=== PATIENT | male | born 1955 | race Caucasian/White ===

== ENCOUNTER → 2018-02-05 | Outpatient (CLI) | payer BC | END | disposition home or self-care (01) | LOC: HKI 12:54 | DX: M25.561 Pain in right knee (principal); F17.210 Nicotine dependence, cigarettes, uncomplicated | CPT/HCPCS: 73564; 73564-RT ==

== ENCOUNTER 2018-05-29 13:00 | Emergency (ER) | payer BC ==
[2018-05-29] MEDS: LIDOCAINE 1% (MDV) 20 ML INJ SC (17:49)
== END 2018-05-29 18:46 | disposition home or self-care (01) ==
LOC: E/R 18:46
DX: L02.415 Cutaneous abscess of right lower limb (principal); F17.210 Nicotine dependence, cigarettes, uncomplicated
CPT/HCPCS: 10060; 87070; 99283-25

== ENCOUNTER 2018-06-19 19:31 | Inpatient (IN) | payer BC ==
[2018-06-19 21:44] LABS: ADD MAN DIFF? NO
[2018-06-19 21:45] LABS: BASOPHIL # 0.1 10^3/ul (0.0-0.1); BASOPHILS % 0.5 % (0.0-2.0); EOSINOPHILS # 0.2 10^3/ul (0.0-0.5); EOSINOPHILS % 1.7 % (0.0-7.0); HEMATOCRIT 38.3 % (42.0-52.0); HEMOGLOBIN 12.1 g/dl (14.0-18.0); LYMPHOCYTES # 1.9 10^3/ul (0.8-2.9); LYMPHOCYTES % 17.7 % (15.0-51.0); MEAN CORPUSCULAR HEMOGLOBIN 27.6 pg (29.0-33.0); MEAN CORPUSCULAR HGB CONC 31.6 g/dl (32.0-37.0); MEAN CORPUSCULAR VOLUME 87.4 fl (82.0-101.0); MEAN PLATELET VOLUME 8.6 fl (7.4-10.4); MONOCYTE # 1.3 10^3/ul (0.3-0.9); MONOCYTES % 11.9 % (0.0-11.0); NEUTROPHIL # 7.1 10^3/ul (1.6-7.5); NEUTROPHILS % 67.6 % (39.0-77.0); PLATELET COUNT 394 10^3/UL (140-415); RED BLOOD COUNT 4.38 10^6/ul (4.70-6.10); RED CELL DISTRIBUTION WIDTH 15.1 % (11.5-14.5)
[2018-06-19 21:45] LABS: WHITE BLOOD COUNT 10.5 10^3/ul (4.8-10.8)
[2018-06-19] MEDS: PIPER-TAZO 3.375 GM IV (PMX) 100 ML IVPB (21:45)
[2018-06-19 21:48] LABS: INR 0.93; PROTIME 12.6 Sec (11.9-14.9)
[2018-06-19 21:50] LABS: PARTIAL THROMBOPLASTIN TIME 27.7 Sec (23.0-35.0)
[2018-06-19 21:54] LABS: ALANINE AMINOTRANSFERASE 16 IU/L (13-69); ALBUMIN 3.7 g/dl (3.3-4.9); ALBUMIN/GLOBULIN RATIO 0.86; ALKALINE PHOSPHATASE 130 IU/L (42-121); ANION GAP 8 (5-13); ASPARTATE AMINO TRANSFERASE 34 IU/L (15-46); BILIRUBIN,INDIRECT 0.1 mg/dl (0-1.1); BILIRUBIN,TOTAL 0.1 mg/dl (0.2-1.3); BLOOD UREA NITROGEN 17 mg/dl (7-20); CALCIUM 9.1 mg/dl (8.4-10.2); CARBON DIOXIDE 28 mmol/L (21-31); CHLORIDE 105 mmol/L (97-110); CREATININE 0.96 mg/dl (0.61-1.24); Estimated GFR > 60 mL/min (>60); GLUCOSE 99 mg/dl (70-220); POTASSIUM 4.8 mmol/L (3.5-5.1); SODIUM 141 mmol/L (135-144)
[2018-06-19] MEDS: VANCOMYCIN 1 GM (PMX) 250 ML IVPB (22:31)
[2018-06-20 00:14] LABS: C-REACTIVE PROTEIN 2.2 mg/dl (0.0-0.9)
[2018-06-20 01:57] LABS: ERYTHROCYTE SEDIMENTATION RATE 30 mm/Hr (0-20)
[2018-06-20] MEDS ORDERED: NACL 0.9% 3 ML SYG IV (13:30)
[2018-06-20] MEDS ORDERED: VANCOMYCIN IV PER PHARMACY XX (13:30)
[2018-06-20] MEDS ORDERED: LIDOCAINE 1% (MPF) 30 ML INJ INJ (13:30)
[2018-06-20] MEDS ORDERED: morphine 2 MG INJ IV (13:30)
[2018-06-20] MEDS ORDERED: ACETAMINOPHEN 325 MG TAB PO (13:30)
[2018-06-20] MEDS ORDERED: PIPER-TAZO 3.375 GM IV (PMX) 100 ML IVPB (18:00)
[2018-06-20 18:01] LABS: SYN FLD WBC 27264 /cmm (0-150)
[2018-06-20 20:29] LABS: SYN FLD SOURCE RIGHT KNEE
[2018-06-20 20:30] LABS: SYN FLD CLARITY CLOUDY; SYN FLD COLOR YELLOW
[2018-06-20 20:34] LABS: SYN FLD CRYSTALS NO CRYSTALS SEEN (None seen)
[2018-06-21 05:15] LABS: ADD MAN DIFF? NO
[2018-06-21 05:19] LABS: BASOPHIL # 0.1 10^3/ul (0.0-0.1); EOSINOPHILS # 0.3 10^3/ul (0.0-0.5); EOSINOPHILS % 3.5 % (0.0-7.0); HEMATOCRIT 38.1 % (42.0-52.0); HEMOGLOBIN 12.2 g/dl (14.0-18.0); LYMPHOCYTES # 2.2 10^3/ul (0.8-2.9); LYMPHOCYTES % 27.7 % (15.0-51.0); MEAN CORPUSCULAR HEMOGLOBIN 27.6 pg (29.0-33.0); MEAN CORPUSCULAR VOLUME 86.2 fl (82.0-101.0); MEAN PLATELET VOLUME 8.5 fl (7.4-10.4); MONOCYTES % 12.5 % (0.0-11.0); NEUTROPHIL # 4.4 10^3/ul (1.6-7.5); NEUTROPHILS % 54.7 % (39.0-77.0); PLATELET COUNT 357 10^3/UL (140-415); RED BLOOD COUNT 4.42 10^6/ul (4.70-6.10); RED CELL DISTRIBUTION WIDTH 15.1 % (11.5-14.5)
[2018-06-21 05:42] LABS: MAGNESIUM 2.4 mg/dl (1.7-2.5)
[2018-06-21 05:52] LABS: ANION GAP 4 (5-13); BLOOD UREA NITROGEN 16 mg/dl (7-20); C-REACTIVE PROTEIN 2.8 mg/dl (0.0-0.9); CALCIUM 9.5 mg/dl (8.4-10.2); CARBON DIOXIDE 29 mmol/L (21-31); CHLORIDE 107 mmol/L (97-110); CREATININE 0.97 mg/dl (0.61-1.24); Estimated GFR > 60 mL/min (>60); GLUCOSE 86 mg/dl (70-220); POTASSIUM 5.1 mmol/L (3.5-5.1); SODIUM 140 mmol/L (135-144)
[2018-06-21] MEDS: HYDROCODONE/APAP (5/325) TAB PO ×2 (08:02→19:40)
[2018-06-22] MEDS: DIPHENHYDRAMINE 25 MG CAP PO (00:17)
[2018-06-22 05:53] LABS: ADD MAN DIFF? NO
[2018-06-22 05:58] LABS: BASOPHIL # 0.1 10^3/ul (0.0-0.1); BASOPHILS % 0.8 % (0.0-2.0); EOSINOPHILS # 0.3 10^3/ul (0.0-0.5); EOSINOPHILS % 3.7 % (0.0-7.0); HEMATOCRIT 37.7 % (42.0-52.0); HEMOGLOBIN 11.9 g/dl (14.0-18.0); LYMPHOCYTES # 2.2 10^3/ul (0.8-2.9); MEAN CORPUSCULAR HEMOGLOBIN 27.4 pg (29.0-33.0); MEAN CORPUSCULAR HGB CONC 31.6 g/dl (32.0-37.0); MEAN CORPUSCULAR VOLUME 86.9 fl (82.0-101.0); MEAN PLATELET VOLUME 8.6 fl (7.4-10.4); MONOCYTE # 0.9 10^3/ul (0.3-0.9); MONOCYTES % 11.1 % (0.0-11.0); NEUTROPHIL # 4.7 10^3/ul (1.6-7.5); NEUTROPHILS % 56.7 % (39.0-77.0); PLATELET COUNT 349 10^3/UL (140-415); RED BLOOD COUNT 4.34 10^6/ul (4.70-6.10); RED CELL DISTRIBUTION WIDTH 15.2 % (11.5-14.5)
[2018-06-22 05:58] LABS: WHITE BLOOD COUNT 8.3 10^3/ul (4.8-10.8)
[2018-06-22 06:03] LABS: MAGNESIUM 2.4 mg/dl (1.7-2.5)
[2018-06-22 06:03] LABS: PHOSPHORUS 4.7 mg/dl (2.5-4.9)
[2018-06-22 06:16] LABS: ANION GAP 4 (5-13); BLOOD UREA NITROGEN 22 mg/dl (7-20); CALCIUM 9.3 mg/dl (8.4-10.2); CARBON DIOXIDE 29 mmol/L (21-31); CHLORIDE 107 mmol/L (97-110); CREATININE 1.01 mg/dl (0.61-1.24); Estimated GFR > 60 mL/min (>60); GLUCOSE 82 mg/dl (70-220); POTASSIUM 4.4 mmol/L (3.5-5.1); SODIUM 140 mmol/L (135-144)
[2018-06-22] MEDS: PIPER-TAZO 3.375 GM IV (PMX) 100 ML IVPB ×2 (08:00→13:00)
[2018-06-22] MEDS: ENOXAPARIN 40 MG/0.4 ML SYG SC (09:00)
== END 2018-06-22 14:40 | disposition home or self-care (01) | DRG 560 ==
LOC: E/R 19:31 → MS1 06-20 10:13
PROC: 0S9C4ZZ Drainage of Right Knee Joint, Percutaneous Endoscopic Approach (ICD-10-PCS; principal; 2018-06-20)
DX: T84.53XA Infection and inflammatory reaction due to internal right knee prosthesis, initial encounter (principal); L03.115 Cellulitis of right lower limb; M25.461 Effusion, right knee; D64.9 Anemia, unspecified; F17.200 Nicotine dependence, unspecified, uncomplicated; M19.90 Unspecified osteoarthritis, unspecified site; F12.90 Cannabis use, unspecified, uncomplicated; Y79.2 Prosthetic and other implants, materials and accessory orthopedic devices associated with adverse incidents
CPT/HCPCS: 36415; 73560; 73562; 73590; 80048; 80053; 83605; 83735; 84100; 85025; 85610; 85651; 85730; 86140; 87040-91; 87070; 87075; 87081; 87102; 87116; 89060; 96365; 96366; 96368; 99285-25

== ENCOUNTER → 2018-06-27 | Outpatient (CLI) | payer BC | END | disposition home or self-care (01) | LOC: HKI 10:11 | DX: T84.53XA Infection and inflammatory reaction due to internal right knee prosthesis, initial encounter (principal); Y83.9 Surgical procedure, unspecified as the cause of abnormal reaction of the patient, or of later complication, without mention of misadventure at the time of the procedure; Y92.89 Other specified places as the place of occurrence of the external cause | CPT/HCPCS: Z7500 ==

== ENCOUNTER 2018-07-06 05:46 | Inpatient (IN) | payer BC ==
[2018-07-06] MEDS: ONDANSETRON 4 MG INJ IV (06:30)
[2018-07-06] MEDS: CELECOXIB 200 MG CAP PO (06:30)
[2018-07-06] MEDS: LANSOPRAZOLE 30 MG CAP PO (06:30)
[2018-07-06] MEDS: VANCOMYCIN 1 GM/NS (PMX) 250 ML FOR WT<80 KG IVPB (06:31)
[2018-07-06] MEDS: ACETAMINOPHEN 1000MG/100ML IV 100 ML IVPB (06:32)
[2018-07-06] MEDS: LACTATED RINGER'S 1,000 ML IV* (06:32)
[2018-07-06] MEDS: CEFAZOLIN 2 GM/50 ML (PMX) 50 ML IVPB (07:00)
[2018-07-06] MEDS ORDERED: ROCURONIUM 50 MG INJ ×2 (07:00→08:12)
[2018-07-06] MEDS ORDERED: oxyCODONE (CR) 10 MG TAB [oxyCONTIN] PO (07:00)
[2018-07-06] MEDS: TOBRAMYCIN 1.2 GM POWDER TOP ×4 (08:00→10:39)
[2018-07-06] MEDS: VANCOMYCIN 1 GM INJ TOP ×4 (08:00→10:48)
[2018-07-06] MEDS ORDERED: CEFAZOLIN 1 GM INJ (08:12)
[2018-07-06] MEDS ORDERED: DEXAMETHASONE 4 MG/ML 5 ML INJ (08:12)
[2018-07-06] MEDS ORDERED: NEOSTIGMINE 3 MG/3 ML SYRINGE (08:12)
[2018-07-06] MEDS ORDERED: FENTAnyl 50 MCG/ML VIAL (08:12)
[2018-07-06] MEDS ORDERED: ONDANSETRON 4 MG INJ (08:12)
[2018-07-06] MEDS ORDERED: PROPOFOL 20 ML (08:12)
[2018-07-06] MEDS ORDERED: GLYCOPYRROLATE 0.4 MG INJ (08:12)
[2018-07-06] MEDS ORDERED: morphine SULFATE/PF (10 MG/10 ML) INJ (08:12)
[2018-07-06] MEDS ORDERED: MIDAZOLAM 1 MG/ML 2 ML INJ (08:12)
[2018-07-06] MEDS ORDERED: EPINEPHrine 1 MG INJ (08:13)
[2018-07-06] MEDS: TRANEXAMIC ACID 1GM/100ML(PMX) 100 ML PRE-OP IVPB (10:16)
[2018-07-06] MEDS: TOBRAMYCIN 1.2 GM POWDER (10:30)
[2018-07-06] MEDS: METHYLENE BLUE 50 MG/10 ML AMPUL (12:06)
[2018-07-06] MEDS: TRANEXAMIC ACID 1GM/100ML(PMX) 100 ML AT CLOSING IVPB (13:02)
[2018-07-06] MEDS ORDERED: ROPIVACAINE 0.5 % 30 ML VIAL (14:05)
[2018-07-06] MEDS ORDERED: ZOLPIDEM 5 MG TAB PO (14:30)
[2018-07-06] MEDS ORDERED: MIDAZOLAM 1 MG/ML 2 ML INJ IV (14:30)
[2018-07-06] MEDS ORDERED: HYDROmorphONE 1 MG/5 ML IV SYRINGE IV ×3 (14:30)
[2018-07-06] MEDS ORDERED: NALOXONE (0.4 MG/ML) INJ IV ×2 (14:30→15:30)
[2018-07-06] MEDS ORDERED: ONDANSETRON 4 MG INJ IV ×2 (14:30)
[2018-07-06] MEDS ORDERED: FENTAnyl 50 MCG/ML VIAL IV ×3 (14:30)
[2018-07-06] MEDS ORDERED: OXYCODONE/ACETAMINOPHEN (5/325) TAB PO ×2 (14:30)
[2018-07-06] MEDS ORDERED: TRIMETHOBENZAMIDE 100 MG/ML VIAL IM ×2 (14:30)
[2018-07-06] MEDS ORDERED: EPHEDrine SULFATE 50 MG/5 ML SYG IV (14:30)
[2018-07-06] MEDS ORDERED: MEPERIDINE 25 MG INJ IV (14:30)
[2018-07-06] MEDS ORDERED: HYDROmorphONE 0.5 MG/0.5 ML SYG IV (14:30)
[2018-07-06] MEDS ORDERED: hydrALAzine 20 MG INJ IV (14:30)
[2018-07-06] MEDS ORDERED: ALBUTEROL 0.083% (NEB) 2.5 MG/3 ML AMP HHN (14:30)
[2018-07-06] MEDS ORDERED: LABETALOL HCL 20MG INJ IV (14:30)
[2018-07-06] MEDS ORDERED: IPRATROPIUM (NEB) 0.5 MG/2.5 ML AMP HHN (14:30)
[2018-07-06] MEDS ORDERED: NALBUPHINE HCL (10 MG/1 ML) INJ IV (14:30)
[2018-07-06] MEDS ORDERED: SUGAMMADEX SODIUM 200 MG/2 ML VIAL IV (15:14)
[2018-07-06] MEDS ORDERED: oxyCODONE 5 MG TAB PO (15:30)
[2018-07-06] MEDS ORDERED: BISACODYL 10 MG SUPP PR (15:30)
[2018-07-06] MEDS ORDERED: NACL 0.9% 3 ML SYG IV (15:30)
[2018-07-06] MEDS ORDERED: NA PHOSPHATE/BIPHOS 133 ML ENEMA PR (15:30)
[2018-07-06] MEDS ORDERED: MAGNESIUM HYDROXIDE 30ML CUP PO (15:30)
[2018-07-06] MEDS: DOCUSATE SODIUM 100 MG CAP PO (15:30)
[2018-07-06] MEDS ORDERED: SENNA/DOCUSATE NA (8.6MG/50MG) TAB PO (15:30)
[2018-07-06] MEDS: DIPHENHYDRAMINE 50 MG INJ IV ×2 (16:26→21:43)
[2018-07-06] MEDS: LACTATED RINGER'S 1,000 ML IV ×2 (16:55→17:17)
[2018-07-06] MEDS: VANCOMYCIN 1 GM (PMX) 250 ML IVPB (17:34)
[2018-07-06] MEDS: GABAPENTIN 300 MG CAP PO (21:25)
[2018-07-06] MEDS: PIPER-TAZO 2.25 GM (PMX) 50 ML IVPB (21:42)
[2018-07-06] MEDS: ACETAMINOPHEN 500 MG TAB PO (21:42)
[2018-07-06] MEDS: NICOTINE (7 MG/24 HR) PATCH TRANSDERM (21:43)
[2018-07-07] MEDS: HYDROmorphONE 0.5 MG/0.5 ML SYG IV (00:28)
[2018-07-07 05:25] LABS: ADD MAN DIFF? NO
[2018-07-07 05:31] LABS: ABNORMAL IP MESSAGE 1; BASOPHILS % 0.1 % (0.0-2.0); HEMATOCRIT 23.1 % (42.0-52.0); HEMOGLOBIN 7.2 g/dl (14.0-18.0); LYMPHOCYTES # 0.5 10^3/ul (0.8-2.9); LYMPHOCYTES % 4.4 % (15.0-51.0); MEAN CORPUSCULAR HEMOGLOBIN 27.7 pg (29.0-33.0); MEAN CORPUSCULAR HGB CONC 31.2 g/dl (32.0-37.0); MEAN CORPUSCULAR VOLUME 88.8 fl (82.0-101.0); MONOCYTE # 0.4 10^3/ul (0.3-0.9); MONOCYTES % 3.3 % (0.0-11.0); NEUTROPHIL # 10.1 10^3/ul (1.6-7.5); NEUTROPHILS % 91.7 % (39.0-77.0); PLATELET COUNT 274 10^3/UL (140-415); POSITIVE DIFF @See below; RED CELL DISTRIBUTION WIDTH 14.4 % (11.5-14.5)
[2018-07-07] MEDS: PIPER-TAZO 2.25 GM (PMX) 50 ML IVPB ×2 (05:45→14:25)
[2018-07-07] MEDS: ACETAMINOPHEN 500 MG TAB PO ×3 (05:57→21:16)
[2018-07-07 06:10] LABS: ANION GAP 4 (5-13); BLOOD UREA NITROGEN 18 mg/dl (7-20); CARBON DIOXIDE 22 mmol/L (21-31); CHLORIDE 112 mmol/L (97-110); CREATININE 1.02 mg/dl (0.61-1.24); Estimated GFR > 60 mL/min (>60); GLUCOSE 216 mg/dl (70-220); POTASSIUM 5.1 mmol/L (3.5-5.1); SODIUM 138 mmol/L (135-144)
[2018-07-07] MEDS: VANCOMYCIN 1 GM (PMX) 250 ML IVPB ×2 (06:46→18:36)
[2018-07-07] MEDS: DOCUSATE SODIUM 100 MG CAP PO ×2 (08:12→21:16)
[2018-07-07] MEDS: NICOTINE (7 MG/24 HR) PATCH TRANSDERM (08:12)
[2018-07-07] MEDS: ASPIRIN (EC) 81 MG TAB PO ×2 (08:12→21:16)
[2018-07-07 09:43] LABS: ADD UMIC NO; UR ASCORBIC ACID NEGATIVE (NEGATIVE); UR BILIRUBIN (Dip) NEGATIVE (NEGATIVE); UR BLOOD (Dip) NEGATIVE (NEGATIVE); UR CLARITY CLEAR (CLEAR); UR COLOR COLORLESS (YELLOW); UR GLUCOSE (Dip) NEGATIVE (NEGATIVE); UR KETONES (Dip) NEGATIVE (NEGATIVE); UR LEUKOCYTE ESTERASE (Dip) NEGATIVE Leu/ul (NEGATIVE); UR NITRITE (Dip) NEGATIVE (NEGATIVE); UR SPECIFIC GRAVITY (Dip) 1.009 (1.003-1.030); UR TOTAL PROTEIN (Dip) NEGATIVE (NEGATIVE); UR UROBILINOGEN (Dip) NEGATIVE (NEGATIVE)
[2018-07-07] MEDS: BETHANECHOL 25 MG TAB PO (10:02)
[2018-07-07] MEDS: oxyCODONE 5 MG TAB PO ×3 (10:13→21:16)
[2018-07-07] MEDS: DIPHENHYDRAMINE 50 MG INJ IV (10:14)
[2018-07-07] MEDS ORDERED: ONDANSETRON 4 MG INJ IV (15:30)
[2018-07-07] MEDS: PIPER-TAZO 3.375 GM IV (PMX) 100 ML IVPB ×2 (18:01→23:32)
[2018-07-07] MEDS: GABAPENTIN 300 MG CAP PO (21:16)
[2018-07-08 04:58] LABS: ADD MAN DIFF? NO
[2018-07-08 05:06] LABS: ABNORMAL IP MESSAGE 1; BASOPHIL # 0.1 10^3/ul (0.0-0.1); BASOPHILS % 0.4 % (0.0-2.0); EOSINOPHILS # 0.1 10^3/ul (0.0-0.5); EOSINOPHILS % 0.4 % (0.0-7.0); HEMATOCRIT 21.8 % (42.0-52.0); MEAN CORPUSCULAR HEMOGLOBIN 28.2 pg (29.0-33.0); MEAN CORPUSCULAR HGB CONC 31.2 g/dl (32.0-37.0); MEAN CORPUSCULAR VOLUME 90.5 fl (82.0-101.0); MONOCYTE # 1.1 10^3/ul (0.3-0.9); MONOCYTES % 6.7 % (0.0-11.0); NEUTROPHILS % 79.6 % (39.0-77.0); PLATELET COUNT 311 10^3/UL (140-415); POSITIVE DIFF @See below; RED BLOOD COUNT 2.41 10^6/ul (4.70-6.10); RED CELL DISTRIBUTION WIDTH 14.8 % (11.5-14.5)
[2018-07-08 05:06] LABS: WHITE BLOOD COUNT 16.3 10^3/ul (4.8-10.8)
[2018-07-08 05:15] LABS: HEMOGLOBIN 6.8 g/dl (14.0-18.0)
[2018-07-08 05:26] LABS: ANION GAP 2 (5-13); BLOOD UREA NITROGEN 22 mg/dl (7-20); CALCIUM 8.6 mg/dl (8.4-10.2); CARBON DIOXIDE 27 mmol/L (21-31); CHLORIDE 114 mmol/L (97-110); CREATININE 1.28 mg/dl (0.61-1.24); Estimated GFR 57 mL/min (>60); GLUCOSE 106 mg/dl (70-220); POTASSIUM 5.1 mmol/L (3.5-5.1); SODIUM 143 mmol/L (135-144)
[2018-07-08] MEDS: PIPER-TAZO 3.375 GM IV (PMX) 100 ML IVPB ×3 (05:28→17:32)
[2018-07-08] MEDS: PANTOPRAZOLE (EC) 40 MG TAB PO (05:29)
[2018-07-08] MEDS: ACETAMINOPHEN 500 MG TAB PO ×3 (05:29→22:54)
[2018-07-08 05:31] LABS: VANCOMYCIN,TROUGH 19.1 ug/ml (10.0-20.0)
[2018-07-08] MEDS: oxyCODONE 5 MG TAB PO ×3 (06:23→17:33)
[2018-07-08] MEDS: DOCUSATE SODIUM 100 MG CAP PO ×2 (08:57→20:29)
[2018-07-08] MEDS: ASPIRIN (EC) 81 MG TAB PO ×2 (08:57→20:29)
[2018-07-08] MEDS: NICOTINE (7 MG/24 HR) PATCH TRANSDERM (08:57)
[2018-07-08] MEDS: VANCOMYCIN 750 MG (PMX) 250 ML IVPB ×2 (08:58→20:29)
[2018-07-08] MEDS: HYDROmorphONE 1 MG/ML SYG IV (09:34)
[2018-07-08] MEDS: GABAPENTIN 300 MG CAP PO (20:29)
[2018-07-08 23:03] LABS: IMMEDIATE SPIN CROSSMATCH 1 4
[2018-07-08] MEDS: SOD CHLORIDE 0.9% 250 ML IV* (23:29)
[2018-07-09] MEDS: oxyCODONE 5 MG TAB PO ×4 (01:35→20:40)
[2018-07-09] MEDS: PIPER-TAZO 3.375 GM IV (PMX) 100 ML IVPB ×4 (02:26→18:52)
[2018-07-09 05:10] LABS: ADD MAN DIFF? NO
[2018-07-09 05:15] LABS: BASOPHIL # 0.1 10^3/ul (0.0-0.1); BASOPHILS % 0.6 % (0.0-2.0); EOSINOPHILS # 0.3 10^3/ul (0.0-0.5); EOSINOPHILS % 2.4 % (0.0-7.0); HEMATOCRIT 26.2 % (42.0-52.0); HEMOGLOBIN 8.1 g/dl (14.0-18.0); LYMPHOCYTES # 2.8 10^3/ul (0.8-2.9); LYMPHOCYTES % 24.6 % (15.0-51.0); MEAN CORPUSCULAR HEMOGLOBIN 27.6 pg (29.0-33.0); MEAN CORPUSCULAR HGB CONC 30.9 g/dl (32.0-37.0); MEAN CORPUSCULAR VOLUME 89.1 fl (82.0-101.0); MEAN PLATELET VOLUME 8.7 fl (7.4-10.4); MONOCYTES % 8.4 % (0.0-11.0); NEUTROPHIL # 7.1 10^3/ul (1.6-7.5); NEUTROPHILS % 63.1 % (39.0-77.0); PLATELET COUNT 320 10^3/UL (140-415); RED BLOOD COUNT 2.94 10^6/ul (4.70-6.10)
[2018-07-09 05:15] LABS: WHITE BLOOD COUNT 11.3 10^3/ul (4.8-10.8)
[2018-07-09] MEDS: ACETAMINOPHEN 500 MG TAB PO ×3 (06:39→22:00)
[2018-07-09] MEDS: PANTOPRAZOLE (EC) 40 MG TAB PO (06:39)
[2018-07-09 06:46] LABS: ANION GAP 6 (5-13); BLOOD UREA NITROGEN 23 mg/dl (7-20); CALCIUM 8.7 mg/dl (8.4-10.2); CARBON DIOXIDE 24 mmol/L (21-31); CHLORIDE 113 mmol/L (97-110); CREATININE 1.35 mg/dl (0.61-1.24); Estimated GFR 54 mL/min (>60); GLUCOSE 97 mg/dl (70-220); POTASSIUM 4.4 mmol/L (3.5-5.1); SODIUM 143 mmol/L (135-144)
[2018-07-09] MEDS: ASPIRIN (EC) 81 MG TAB PO ×2 (08:26→20:39)
[2018-07-09] MEDS: DOCUSATE SODIUM 100 MG CAP PO ×2 (08:26→20:39)
[2018-07-09] MEDS: NICOTINE (7 MG/24 HR) PATCH TRANSDERM (08:27)
[2018-07-09] MEDS: VANCOMYCIN 750 MG (PMX) 250 ML IVPB (10:18)
[2018-07-09] MEDS: LIDOCAINE 1% (MPF) 5 ML VIAL SC (10:30)
[2018-07-09] MEDS: SOD CHLORIDE 0.9% 1,000 ML IV (18:53)
[2018-07-09] MEDS: GABAPENTIN 300 MG CAP PO (20:39)
[2018-07-10] MEDS: oxyCODONE 5 MG TAB PO ×5 (00:38→18:34)
[2018-07-10] MEDS: PIPER-TAZO 3.375 GM IV (PMX) 100 ML IVPB ×5 (00:40→23:47)
[2018-07-10] MEDS: PANTOPRAZOLE (EC) 40 MG TAB PO (04:45)
[2018-07-10 05:11] LABS: ADD MAN DIFF? NO
[2018-07-10 05:20] LABS: WHITE BLOOD COUNT 10.4 10^3/ul (4.8-10.8)
[2018-07-10 05:21] LABS: BASOPHIL # 0.1 10^3/ul (0.0-0.1); BASOPHILS % 0.5 % (0.0-2.0); EOSINOPHILS # 0.4 10^3/ul (0.0-0.5); EOSINOPHILS % 3.7 % (0.0-7.0); HEMATOCRIT 27.1 % (42.0-52.0); HEMOGLOBIN 8.6 g/dl (14.0-18.0); LYMPHOCYTES # 2.2 10^3/ul (0.8-2.9); MEAN CORPUSCULAR HEMOGLOBIN 27.7 pg (29.0-33.0); MEAN CORPUSCULAR HGB CONC 31.7 g/dl (32.0-37.0); MEAN CORPUSCULAR VOLUME 87.4 fl (82.0-101.0); MEAN PLATELET VOLUME 8.8 fl (7.4-10.4); MONOCYTE # 0.9 10^3/ul (0.3-0.9); MONOCYTES % 8.6 % (0.0-11.0); NEUTROPHIL # 6.7 10^3/ul (1.6-7.5); NEUTROPHILS % 64.7 % (39.0-77.0); PLATELET COUNT 348 10^3/UL (140-415); RED CELL DISTRIBUTION WIDTH 15.5 % (11.5-14.5)
[2018-07-10 05:32] LABS: ANION GAP 5 (5-13); BLOOD UREA NITROGEN 21 mg/dl (7-20); CALCIUM 8.8 mg/dl (8.4-10.2); CARBON DIOXIDE 29 mmol/L (21-31); CHLORIDE 106 mmol/L (97-110); CREATININE 1.23 mg/dl (0.61-1.24); Estimated GFR 60 mL/min (>60); GLUCOSE 97 mg/dl (70-220); POTASSIUM 4.6 mmol/L (3.5-5.1); SODIUM 140 mmol/L (135-144)
[2018-07-10] MEDS: ACETAMINOPHEN 500 MG TAB PO ×3 (06:00→21:05)
[2018-07-10] MEDS: SOD CHLORIDE 0.9% 1,000 ML IV ×2 (06:50→09:54)
[2018-07-10 08:01] LABS: ERYTHROCYTE SEDIMENTATION RATE 32 mm/Hr (0-20)
[2018-07-10] MEDS: NICOTINE (7 MG/24 HR) PATCH TRANSDERM (09:42)
[2018-07-10] MEDS: ASPIRIN (EC) 81 MG TAB PO ×2 (09:42→21:05)
[2018-07-10] MEDS: GABAPENTIN 300 MG CAP PO (21:05)
[2018-07-11] MEDS: oxyCODONE 5 MG TAB PO ×3 (03:17→15:28)
[2018-07-11 05:11] LABS: ADD MAN DIFF? NO
[2018-07-11 05:21] LABS: BASOPHILS % 0.6 % (0.0-2.0); EOSINOPHILS # 0.3 10^3/ul (0.0-0.5); EOSINOPHILS % 3.9 % (0.0-7.0); HEMATOCRIT 25.1 % (42.0-52.0); LYMPHOCYTES # 1.6 10^3/ul (0.8-2.9); LYMPHOCYTES % 23.5 % (15.0-51.0); MEAN CORPUSCULAR HEMOGLOBIN 27.6 pg (29.0-33.0); MEAN CORPUSCULAR HGB CONC 31.9 g/dl (32.0-37.0); MEAN CORPUSCULAR VOLUME 86.6 fl (82.0-101.0); MEAN PLATELET VOLUME 8.9 fl (7.4-10.4); MONOCYTE # 0.7 10^3/ul (0.3-0.9); MONOCYTES % 10.6 % (0.0-11.0); NEUTROPHIL # 4.2 10^3/ul (1.6-7.5); NEUTROPHILS % 59.5 % (39.0-77.0); PLATELET COUNT 310 10^3/UL (140-415); RED CELL DISTRIBUTION WIDTH 15.1 % (11.5-14.5)
[2018-07-11 05:43] LABS: ANION GAP 3 (5-13); BLOOD UREA NITROGEN 24 mg/dl (7-20); CALCIUM 8.7 mg/dl (8.4-10.2); CARBON DIOXIDE 30 mmol/L (21-31); CHLORIDE 108 mmol/L (97-110); CREATININE 1.15 mg/dl (0.61-1.24); Estimated GFR > 60 mL/min (>60); GLUCOSE 108 mg/dl (70-220); POTASSIUM 4.2 mmol/L (3.5-5.1); SODIUM 141 mmol/L (135-144)
[2018-07-11] MEDS: PANTOPRAZOLE (EC) 40 MG TAB PO (05:43)
[2018-07-11] MEDS: ACETAMINOPHEN 500 MG TAB PO ×2 (05:43→14:43)
[2018-07-11] MEDS: PIPER-TAZO 3.375 GM IV (PMX) 100 ML IVPB ×2 (05:43→12:00)
[2018-07-11] MEDS: ASPIRIN (EC) 81 MG TAB PO (09:21)
[2018-07-11] MEDS: NICOTINE (7 MG/24 HR) PATCH TRANSDERM (09:23)
[2018-07-11] MEDS ORDERED: hydrALAzine 20 MG INJ IV (12:00)
== END 2018-07-11 17:00 | disposition home health service (06) | DRG 467 ==
LOC: REC 05:46 → MS1 17:04
PROC: 0QBG0ZZ Excision of Right Tibia, Open Approach (ICD-10-PCS; principal; 2018-07-06 08:00)
PROC: 0SPC0JZ Removal of Synthetic Substitute from Right Knee Joint, Open Approach (ICD-10-PCS; 2018-07-06 08:00)
PROC: 0SRC0EZ Replacement of Right Knee Joint with Articulating Spacer, Open Approach (ICD-10-PCS; 2018-07-06 08:00)
DX: T84.53XA Infection and inflammatory reaction due to internal right knee prosthesis, initial encounter (principal); M00.9 Pyogenic arthritis, unspecified; L02.415 Cutaneous abscess of right lower limb; M25.461 Effusion, right knee; F17.290 Nicotine dependence, other tobacco product, uncomplicated; Z96.651 Presence of right artificial knee joint
CPT/HCPCS: 36430; 36569; 71045; 73560; 76937; 80048; 80202; 81003; 85025; 85651; 86850; 86900; 86901; 86920; 87070; 87075; 87102; 87116; 88300; 97110; 97116; 97161; 97167; 97530

== ENCOUNTER → 2018-07-25 | Outpatient (CLI) | payer BC | END | disposition home or self-care (01) | LOC: HKI 13:10 | DX: Z09 Encounter for follow-up examination after completed treatment for conditions other than malignant neoplasm (principal); Z96.651 Presence of right artificial knee joint | CPT/HCPCS: 73562; 73562-50 ==

== ENCOUNTER → 2018-08-01 | Outpatient (CLI) | payer BC | END | disposition home or self-care (01) | LOC: HKI 14:42 | DX: Z47.1 Aftercare following joint replacement surgery (principal); Z96.651 Presence of right artificial knee joint; Z79.82 Long term (current) use of aspirin ==

== ENCOUNTER → 2018-08-06 | Outpatient (CLI) | payer BC | END | disposition home or self-care (01) | LOC: HKI 13:20 | DX: Z47.1 Aftercare following joint replacement surgery (principal); Z96.651 Presence of right artificial knee joint ==